=== PATIENT | female | born 1975 | race Caucasian/White ===

== ENCOUNTER 2019-11-13 14:51 | Emergency (ER) | payer MEDICARE, MEDICAID, SELFPAY ==
[2019-11-13 15:05] VITALS: BP 127/73; PULSE 77; RESP 16; TEMP 36.7; O2SAT 99
--- NOTE | 2019-11-13 15:11 | ED.SKABFB ---
HPI - Skin/Abscess/Foreign Bdy General Chief complaint: Skin/Abscess/Foreign Body Stated complaint: Sores in Mouth Time Seen by Provider: 11/13/19 15:12 Source: patient Mode of arrival: ambulatory Limitations: no limitations History of Present Illness HPI narrative: Carla Hernandez is a 44 yo female who has a PMH herpes, who comes with ulcers in mouth. No pain or itching - started a few days ago. Pt is on herpes suppressant therapy Related Data Home Medications Medication Instructions Recorded Confirmed acyclovir 11/13/19 Allergies Allergy/AdvReac Type Severity Reaction Status Date / Time valacyclovir Allergy Unknown Verified 03/07/19 09:04 Penicillins AdvReac Mild NAUSEA Verified 03/07/19 09:04 doxycycline AdvReac Unknown vomiting/na Verified 03/07/19 09:04 usea DIPHENHYDRAMINE HCL Allergy Mild RASH Uncoded 03/07/19 09:04 Review of Systems Review of Systems: Narrative: CONSTITUTIONAL: Denies fever, chills, sweats. EYES: Denies visual changes, redness, discharge. ENT: Denies rhinorrhea, congestion, sore throat, otalgia. Sores in her mouth CARDIOVASCULAR: Denies chest pain, palpitations, edema. RESPIRATORY: Denies dyspnea, wheezing, cough GASTROINTESTINAL: Denies abdominal pain, nausea, vomiting, diarrhea. GENITOURINARY: Denies dysuria, hematuria, abnormal discharge SKIN: Denies rash or itching. MUSCULOSKELETAL: Denies acute back pain, joint pain, or myalgia. NEUROLOGIC: Denies numbness, or focal weakness. PSYCHIATRIC: Denies anxiety or depression. PMFSH Social History Social History (Updated 11/13/19 @ 15:22 by Ellne Wang CNP) Smoking status: Current every day smoker Living arrangements: with family Occupation/Education: occupation Exam Narrative: Exam Narrative: GENERAL: This is a well-nourished, well-developed patient, in mild distress. HEAD: normocephalic, atraumatic. EYES: Sclera clear/white. Vision is grossly intact. EARS: External ears normal,Hearing grossly intact. NOSE: External nose normal with no obvious nasal discharge, nares without redness, no rhinorrhea. THROAT: Mucous membranes moist, posterior pharynx clear. Mout: broken teeth with poor dentition. has white coned non tender, ulcers on upper lip and back of mouth NECK: Neck supple, non-tender without lymphadenopathy, masses or thyromegaly. CARDIOVASCULAR: Regular rate and rhythm without murmurs, gallops, or rubs. RESPIRATORY: Clear to auscultation. Breath sounds equal bilaterally. No wheezes, rales, or rhonchi. GASTROINTESTINAL: Abdomen soft, non-tender, nondistended. Bowel sounds are active. No hepato-splenomegaly, or palpable masses. No guarding. SKIN: warm, intact with no suspicious lesions or rash, good texture and turgor. NEURO: awake, alert, and oriented to person, place and time. There were no obvious focal neurologic abnormalities. Steady gait EXTREMITIES: Normal range of motion. No edema. No calf tenderness. Negative Homans sign bilaterally. BACK: Nontender without deformity or crepitance. No flank tenderness. Course Vital Signs Vital signs: Vital Signs Temperature 98.1 F 11/13/19 15:05 Pulse Rate 77 11/13/19 15:05 Respiratory Rate 16 11/13/19 15:05 Blood Pressure 127/73 11/13/19 15:05 Pulse Oximetry 99 11/13/19 15:05 Temperature 98.1 F 11/13/19 15:05 Pulse Rate 77 11/13/19 15:05 Respiratory Rate 16 11/13/19 15:05 Blood Pressure 127/73 11/13/19 15:05 Pulse Oximetry 99 11/13/19 15:05 MDM - Skin/Abscess/Foreign Bdy Differential Diagnosis Differential diagnosis: Likely urticaria, herpes zoster and other Discharge Plan Discharge Clinical Impression: Aphthous ulcer Patient Disposition: Home, Self-Care Condition: Stable Instructions: Gingivostomatitis (ED) Prescriptions: New Lidocaine Viscous 2 % solution 1 applic MUCOUS MEM TID PRN (Reason: pain) 20 Days Qty: 100 RF: 0 No Action acyclovir 200 mg capsule RF: 0 Follow-up/Referrals: Sharon
== END 2019-11-13 15:42 | disposition home or self-care (01) ==
PROVIDERS: Emergency Provider Nurse Practitioner; PCP Physician Assistant
DX: K12.0 Recurrent oral aphthae (principal); F17.200 Nicotine dependence, unspecified, uncomplicated
CPT/HCPCS: 99213; G0463

== ENCOUNTER 2022-11-25 15:12 | Emergency (ER) | payer MEDICARE, MEDICAID, SELFPAY ==
[2022-11-25 15:22] VITALS: BP 134/86; PULSE 84; RESP 16; TEMP 37.2; O2SAT 99
--- NOTE | 2022-11-25 15:34 | ED.URI ---
HPI - URI/Sore Throat General Chief Complaint: Upper Respiratory Infection Stated Complaint: Sore Throat/Ears Irritation Time Seen by Provider: 11/25/22 15:28 Source: patient Mode of arrival: ambulatory Limitations: no limitations History of Present Illness HPI Narrative: Ms. Ricketts is a 47-year-old female patient presenting to the clinic today with complaints of sore throat, bilateral ear pain, cough, and headache x1 day. She denies any fever or chills. MD elicited complaint: sore throat and nasal congestion Related Data Home Medications Medication Instructions Recorded Confirmed acyclovir 200 mg capsule 200 mg PO BID 11/25/22 11/25/22 atorvastatin 20 mg tablet 20 mg PO DAILY 11/25/22 11/25/22 norethindrone acetate 5 mg tablet 5 mg PO DAILY 11/25/22 11/25/22 paroxetine HCl 30 mg tablet 30 mg PO DAILY 11/25/22 11/25/22 Allergies Allergy/AdvReac Type Severity Reaction Status Date / Time valacyclovir Allergy Unknown Other Verified 11/25/22 15:15 Penicillins AdvReac Mild NAUSEA Verified 11/25/22 15:15 doxycycline AdvReac Unknown vomiting/na Verified 11/25/22 15:15 usea DIPHENHYDRAMINE HCL Allergy Mild RASH Uncoded 11/25/22 15:15 Review of Systems Review of Systems: Pertinent positives per HPI. Patient denies any fever, chills, rash, visual changes, dizziness, shortness of breath, chest pain, palpitations, nausea, vomiting, diarrhea, constipation, abdominal pain, or any urinary issues. PMFSH Social History Social History Smoking status: Current every day smoker Living arrangements: with family Occupation/Education: occupation Comments At the time of my signature, I reviewed and agree with the nursing past medical, surgical, social, and family history. There is no relevant family history pertinent to the patient complaint. Exam Narrative: General: Well-developed, well nourished, in no apparent distress Head: Normocephalic, atraumatic Eyes: Pupils equally round and reactive to light bilaterally, EOM intact, sclera and conjunctive clear, no discharge, lids normal Ears: TMs intact and dull, ear canals clear, no drainage, grossly hearing normal. Nose: Nares patent, clear nasal discharge, no inflammation, no sinus tenderness. Mouth: Oral pharynx without lesions or masses, good dentition, MMM. Oropharynx red Neck: Supple, trachea midline, enlargement of anterior cervical nodes, no thyroid masses or goiter palpable. Cardio: Regular rate and rhythm, s1 and s2 normal, no murmur appreciated. Resp: Clear to auscultation bilaterally, no rhonchi, rales, wheezing or rubs Course Course Emergency Course: Portions of this record may have been created with voice recognition software. Level of Care: Express Care Visit Vital Signs Vital signs: Vital Signs Temperature 37.2 C 11/25/22 15:22 Pulse Rate 84 11/25/22 15:22 Respiratory Rate 16 11/25/22 15:22 Blood Pressure 134/86 11/25/22 15:22 Pulse Oximetry 99 11/25/22 15:22 Oxygen Delivery Room Air 11/25/22 15:22 Temperature 37.2 C 11/25/22 15:22 Pulse Rate 84 11/25/22 15:22 Respiratory Rate 16 11/25/22 15:22 Blood Pressure 134/86 11/25/22 15:22 Pulse Oximetry 99 11/25/22 15:22 Oxygen Delivery Room Air 11/25/22 15:22 Vital signs reviewed MDM - URI/Sore Throat MDM Narrative Medical decision making narrative: At the time of the patient is resting comfortably on the exam table. Strep and COVID test were obtained and were negative in the clinic today. I suspect patient has URI, eustachian tube dysfunction, pharyngitis, and viral syndrome. For prednisone was sent to the pharmacy and supportive measures were discussed with the patient she voiced understanding discharge instructions agrees to treatment plan Differential Diagnosis Differential diagnosis: Likely upper respiratory infection, otitis media, sinusitis, viral infection, bronchitis, influenza, pharyngi
== END 2022-11-25 16:05 | disposition home or self-care (01) ==
PROVIDERS: Emergency Provider Nurse Practitioner Family; PCP Physician Assistant
DX: J06.9 Acute upper respiratory infection, unspecified (principal); B34.9 Viral infection, unspecified; H69.93 Unspecified Eustachian tube disorder, bilateral; J02.9 Acute pharyngitis, unspecified; Z20.822 Contact with and (suspected) exposure to COVID-19; F17.200 Nicotine dependence, unspecified, uncomplicated
CPT/HCPCS: 87081; 87426; 87880; 99213; C9803; G0463

== ENCOUNTER 2022-11-28 15:15 | Emergency (ER) | payer MEDICARE, MEDICAID, SELFPAY ==
--- NOTE | ~2022-11-28 | XR_ITS ---
EXAMINATION: XR chest 2V DATE: 11/28/2022 15:43 INDICATION: Shortness of breath and congestion TECHNIQUE: PA and lateral views of the chest were obtained. COMPARISON: Chest radiograph dated 06/19/2019 FINDINGS: Mild biapical pleural-parenchymal scarring. No other airspace opacities, pulmonary edema, pleural eff usion or pneumothorax. The cardiomediastinal silhouette is normal. Mild thoracic spondylosis. IMPRESSION: 1. Mild biapical pleural-parenchymal scarring. No acute cardiopulmonary disease. Reviewed, dictated and finalized at location A. ECT SAFETY MANAGER IMPRESSION: 1. Mild biapical pleural-parenchymal scarring. No acute cardiopulmonary disease .
--- NOTE | 2022-11-28 15:20 | ED.URI ---
HPI - URI/Sore Throat General Chief Complaint: Upper Respiratory Infection Stated Complaint: Ears/Sore Throat Time Seen by Provider: 11/28/22 15:27 Source: patient, RN notes reviewed and old records reviewed Mode of arrival: ambulatory Limitations: no limitations History of Present Illness HPI Narrative: 47-year-old female presents to the [facility] with continued throat pain, ear pain, rash to her groin area. Reports that she is still taking the prednisone Per medical record was seen and evaluated 3 days ago and at that time stated her symptoms started the night before wear. Today which she reports that her symptoms have been only going on for 3 days, since Friday. Did a teleconference with her primary yesterday and was told that he could not treat her for her symptoms. Related Data Home Medications Medication Instructions Recorded Confirmed acyclovir 200 mg capsule 200 mg PO BID 11/25/22 11/28/22 atorvastatin 20 mg tablet 20 mg PO DAILY 11/25/22 11/28/22 norethindrone acetate 5 mg tablet 5 mg PO DAILY 11/25/22 11/28/22 paroxetine HCl 30 mg tablet 30 mg PO DAILY 11/25/22 11/28/22 Allergies Allergy/AdvReac Type Severity Reaction Status Date / Time valacyclovir Allergy Unknown Other Verified 11/28/22 15:23 Penicillins AdvReac Mild NAUSEA Verified 11/28/22 15:23 doxycycline AdvReac Unknown vomiting/na Verified 11/25/22 15:15 usea DIPHENHYDRAMINE HCL Allergy Mild RASH Uncoded 11/28/22 15:23 Review of Systems Review of Systems: All systems reviewed & are unremarkable except as noted in HPI and below Constitutional: Constitutional: Reports no additional constitutional complaints Eyes: Eyes: Reports no additional eye complaints ENT: Reports as per HPI, Reports otalgia and Reports sore throat Cardiovascular: Cardiovascular: Reports no additional cardiovascular complaints, Denies chest pain and Denies dyspnea Respiratory: Respiratory: Reports no additional respiratory complaints, Denies chest congestion, Denies cough and Denies dyspnea Gastrointestinal: Gastrointestinal: Reports no additional gastrointestinal complaints, Denies abdominal pain, Denies nausea and Denies vomiting Musculoskeletal: Musculoskeletal: Reports no additional musculoskeletal complaints Integumentary/Breasts: Skin/Breast: Reports system reviewed and no additional complaints, except as docu Neurologic: Reports system reviewed and no additional complaints, except as documented Psychiatric: Psychiatric: Reports no additional psychiatric complaints Allergic/Immunologic: Allergic/Immunologic: Reports no additional allergic/immunologic complaints PMFSH Social History Social History Smoking status: Current every day smoker Living arrangements: with family Occupation/Education: occupation Comments At the time of my signature, I reviewed and agree with the nursing past medical, surgical, social, and family history. There is no relevant family history pertinent to the patient complaint. Exam Const: General: cooperative, healthy appearing, no acute distress, well developed, alert, anxious, uncomfortable and well nourished Nutritional Appearance: well nourished Orientation/consciousness: patient oriented x3 Limitations: no limitations HENMT: Head: normal to inspection Ears: hearing grossly normal bilaterally and external ears normal Face/Nose/Sinus: Normal external nose present, Normal nares present, Normal nasal mucous membranes and turbinates present and normal facial exam Face and sinus: normal facial exam Mouth: Yes Normal oral and palatal mucosa present, Yes lip normal and Yes moist mucous membranes Throat: posterior oropharynx normal and uvula midline Eyes: General: appearance normal, both eyes and all related structures Alignment and Position: alignment normal Periorbital: periorbital findings normal Conjunctivae: conjunctivae normal Pupils: Equal, round and reactive pupils pre
[2022-11-28 15:26] VITALS: BP 122/77; PULSE 85; RESP 26; TEMP 36.8; O2SAT 97
[2022-11-28 16:17] VITALS: RESP 20
== END 2022-11-28 16:17 | disposition home or self-care (01) ==
PROVIDERS: Emergency Provider Nurse Practitioner; PCP Physician Assistant
DX: B34.9 Viral infection, unspecified (principal); Z20.822 Contact with and (suspected) exposure to COVID-19; F17.200 Nicotine dependence, unspecified, uncomplicated; E78.00 Pure hypercholesterolemia, unspecified; Z85.21 Personal history of malignant neoplasm of larynx; F41.9 Anxiety disorder, unspecified; F32.A Depression, unspecified
CPT/HCPCS: 71046; 87081; 87426; 87804; 87880; 99213; C9803; G0463

== ENCOUNTER 2022-12-02 06:32 | Emergency (ER) | payer MEDICARE, MEDICAID, SELFPAY ==
--- NOTE | ~2022-12-02 | XR_ITS ---
Clinical Indication: Shortness of breath PA and lateral views of the chest: Comparison: None Findings: Probable pleural thickening or scarring at the right lung apex. The lungs are otherwise michael ar, without evidence of focal consolidation or pleural effusion. Cardiomediastinal silhouette is wit hin normal limits. Bones and soft tissues are unremarkable. Impression: No acute abnormality evident. Probable pleural thickening or scarring at the right lung apex. Reviewed, dictated and finalized at location . RIAL HANDLING SUPERVISOR Impression: No acute abnormality evident. Probable pleural thickening or scarring at the right lung apex.
--- NOTE | 2022-12-02 06:35 | ECG_ITS ---
Measurements Intervals [place] Rate: 82 P: 61 LA: 116 QRS: 49 QRSD: 93 T: 45 QT: 342 QTc: 401 Interpretive Statements SINUS RHYTHM WITH SHORT LA INTERVAL BASELINE ARTIFACT BORDERLINE ECG NO PREVIOUS ECG AVAILABLE FOR COMPARISON Electronically Signed On 12-02-2022 14:12:23 RUBBER CUTTING MACHINE TENDER by Darshan Interiano M.D.
[2022-12-02 06:37] VITALS: O2SAT 99
[2022-12-02 06:44] VITALS: PULSE 85
[2022-12-02 06:45] VITALS: BP 129/75; PULSE 81; RESP 16; O2SAT 99
[2022-12-02 06:47] VITALS: TEMP 36.6
[2022-12-02 06:50] LABS: Basophils Absolute Auto 0.1 K/mm3 (0.0-0.1); Basophils Percent Auto 0.5 % (0.2-1.2); Eosinophils Absolute Auto 0.4 K/mm3 (0-0.3); Eosinophils Percent Auto 1.8 % (0-4.4); Hematocrit 45.9 % (37.0-47.0); Hemoglobin 15.8 g/dL (12.0-15.0); Immature Granulocyte Absolute 0.14 K/mm3 (0.00-0.031); Immature Granulocyte Percent A 0.7 % (0-0.5); Lymphocytes Percent Auto 28.6 % (18.3-44.2); Mean Corpuscular HGB Conc 34.4 g/dl (32-36); Mean Corpuscular Hemoglobin 33.5 pg (26-34); Mean Corpuscular Volume 97.5 fl (80-100); Monocytes Absolute Auto 1.5 K/mm3 (0.1-0.6); Monocytes Percent Auto 7.8 % (2.6-8.5); Neutrophils Absolute Auto 11.9 K/mm3 (1.3-6.7); Neutrophils Percent Auto 60.6 % (45.5-73.1); Platelet Count Result 289 k/mm3 (150-375); Red Blood Count 4.71 M/mm3 (4.2-5.4); White Blood Count 19.6 K/mm3 (4.5-10.0)
[2022-12-02 07:05] LABS: Alanine Aminotransferase 26 U/L (6-35); Albumin Level 4.6 g/dL (3.5-5.1); Alkaline Phosphatase 77 U/L (38-126); Anion Gap 7 mmol/L (8-16); Aspartate Amino Transferase 27 U/L (14-36); Bilirubin,Total 0.7 mg/dL (0.2-1.3); Blood Urea Nitrogen 8 mg/dL (7-17); Calcium 9.2 mg/dL (8.4-10.2); Carbon Dioxide 27 mmol/L (22-30); Chloride 99 mmol/L (98-107); Estimated CRCL calculation 83 ml/min; Estimated Glomerular Filt Rate > 60; Glucose 100 mg/dL (65-110); Potassium 3.3 mmol/L (3.4-5.0); Sodium 133 mmol/L (137-145)
[2022-12-02 07:14] LABS: Strep Group A RT-PCR NOT DETECTED (Negative)
[2022-12-02 07:26] LABS: Influenza A QL RT-PCR Negative (Negative); Influenza B QL RT-PCR Negative (Negative); SARS-CoV-2 RNA PCR Negative
[2022-12-02 07:30] VITALS: BP 128/88; PULSE 82; RESP 14; O2SAT 97
[2022-12-02] MEDS: ONDANSETRON INJ 4 MG/2 ML VIAL IV PUSH (07:33)
[2022-12-02] MEDS: LIDOCAINE HCL 2% VISC SOLN 15 ML UDC PO (07:33)
--- NOTE | 2022-12-02 07:55 | ED.GENADULT ---
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 She states she was seen by a primary care provider for left ear pain and was placed on steroids (last dose she took yesterday). Over the past 2 to 3 days, she has noted cough productive of thick mucus, sore throat, nausea, and 1 episode of vomiting and left ear pain.. Related Data Allergies Allergy/AdvReac Type Severity Reaction Status Date / Time Penicillins AdvReac Nausea and Verified 12/02/22 07:31 Vomiting Review of Systems Review of Systems: CONSTITUTIONAL: Denies fever, chills, or sweats. EYES: Denies visual changes, redness, or discharge. ENT: rhinorrhea, congestion, sore throat, left otalgia. CARDIOVASCULAR: Denies chest pain, palpitations, or edema. RESPIRATORY: Cough productive of thick sputum denies dyspnea. GASTROINTESTINAL: Nausea and vomiting denies abdominal pain, or diarrhea. GENITOURINARY: Denies dysuria or hematuria. SKIN: Denies rash or itching. MUSCULOSKELETAL: Denies back pain, joint pain, or myalgia. NEUROLOGIC: Denies headache, numbness, dizziness, or weakness. PSYCHIATRIC: Denies anxiety or depression. Exam Narrative: GENERAL: Well-developed, well-nourished, and in no acute distress. HEAD: Normocephalic, atraumatic. EYES: PERRLA and EOMI. ENT: Nares clear, no rhinorrhea or epistaxis. Mucous membranes moist. Oropharynx with mild bilateral tonsillar erythema without exudate or other lesions. Left TM pearly gill, bulging slightly without erythema or purulent fluid. Right TM pearly gill nonbulging NECK: Supple. Left anterior cervical adenopathy. No masses. No carotid bruits or JVD CHEST: Clear to auscultation. No respiratory distress. No wheezes rales or rhonchi HEART: Regular rate and rhythm. No murmur heard. Normal peripheral pulses. ABDOMEN: Soft, nontender, nondistended, normal active bowel sounds. EXTREMITIES: Normal range of motion. No edema. SKIN: Warm, dry, no rash. NEURO: No focal deficits. Alert and oriented x3. PSYCH: Normal mood and affect. Course Course Emergency Course: 09:20 - On reevaluation, patient tested negative for strep, COVID and flu. Her blood cell count is elevated to 19, however given the patient's recent use of steroids I do not suspect other acute infection. Chest x-ray not concerning for pneumonia. Patient is able to tolerate food. Will discharge with antiemetics, recommendations for decongestants and pain control. Vital Signs Vital signs: Vital Signs Pulse Oximetry 99 12/02/22 06:37 Oxygen Delivery Room Air 12/02/22 06:37 Temperature 97.8 F 12/02/22 06:47 Pulse Rate 87 12/02/22 08:53 Respiratory Rate 15 12/02/22 08:53 Blood Pressure 131/70 12/02/22 08:53 Pulse Oximetry 96 12/02/22 08:53 Oxygen Delivery Room Air 12/02/22 06:37 Medical Decision Making MDM Narrative Medical decision making narrative: Plan: Labs, pain control, antiemetics, reassess Differential Diagnosis Differential Diagnosis: COVID, flu, strep pharyngitis, viral URI, other Vital Signs Vital Signs: Vital Signs Pulse Oximetry 99 12/02/22 06:37 Oxygen Delivery Room Air 12/02/22 06:37 Temperature 97.8 F 12/02/22 06:47 Pulse Rate 87 12/02/22 08:53 Respiratory Rate 15 12/02/22 08:53 Blood Pressure 131/70 12/02/22 08:53 Pulse Oximetry 96 12/02/22 08:53 Oxygen Delivery Room Air 12/02/22 06:37 Lab Data 12/02/22 06:41 12/02/22 06:41 Labs: Lab Results 12/02/22 12/02/22 12/02/22 Range/Units 06:41 06:41 06:41 WBC 19.6 H (4.5-10.0) K/mm3 RBC 4.71 (4.2-5.4) M/mm3 Hgb 15.8 H (12.0-15.0) g/dL Hct 45.9 (3
[2022-12-02] MEDS: ACETAMINOPHEN 500 MG TABLET 1000 MG PO (08:51)
[2022-12-02 08:53] VITALS: BP 131/70; PULSE 87; RESP 15; O2SAT 96
== END 2022-12-02 09:59 | disposition home or self-care (01) ==
PROVIDERS: Emergency Medicine; Emergency Provider Preventive Medicine Aerospace Medicine
DX: H92.02 Otalgia, left ear (principal); R69 Illness, unspecified; Z20.822 Contact with and (suspected) exposure to COVID-19
CPT/HCPCS: 36415; 71046; 80053; 85025; 87636; 87651; 93005; 96374; 99284; A9270; J2405

== ENCOUNTER 2023-11-20 16:09 | Emergency (ER) | payer MEDICARE, MEDICAID, SELFPAY ==
[2023-11-20 16:24] VITALS: BP 128/57; PULSE 83; RESP 20; TEMP 36.8; O2SAT 98
[2023-11-20 16:27] VITALS: BP 128/57; PULSE 83; RESP 20; TEMP 36.8; O2SAT 98
--- NOTE | 2023-11-20 16:59 | ED.GENADULT ---
HPI - General Adult General Chief complaint: Animal Bite Stated complaint: cat scratch Time Seen by Provider: 11/20/23 16:48 Source: patient and RN notes reviewed Mode of arrival: ambulatory Limitations: no limitations History of Present Illness HPI narrative: Patient presents today complaining of a cat bite to her right 2nd finger that was sustained yesterday my her daughter's cat at home. Currently rates her pain 2/10. She clean the area and applied antibiotic ointment prior to arrival. Related Data Home Medications Medication Instructions Recorded Confirmed acyclovir 200 mg capsule 200 mg PO BID 11/25/22 11/20/23 atorvastatin 20 mg tablet 20 mg PO DAILY 11/25/22 11/20/23 norethindrone acetate 5 mg tablet 5 mg PO DAILY 11/25/22 11/20/23 citalopram 40 mg tablet 40 mg PO DAILY 11/20/23 11/20/23 fluticasone propionate 50 See Rx Instructions .Route .COMPLEX 11/20/23 11/20/23 mcg/actuation nasal spray,suspension naproxen 500 mg tablet 500 mg PO DAILY 11/20/23 11/20/23 Allergies Allergy/AdvReac Type Severity Reaction Status Date / Time doxycycline AdvReac Mild vomiting/na Verified 11/20/23 17:00 usea DIPHENHYDRAMINE HCL Allergy Mild RASH Uncoded 11/20/23 17:00 Review of Systems Review of Systems: CONSTITUTIONAL: Denies body aches, fever, chills, or sweats. EYES: Denies visual changes, redness, or discharge. ENT: Denies rhinorrhea, congestion, sore throat, or otalgia. CARDIOVASCULAR: Denies chest pain, palpitations, or edema. RESPIRATORY: Denies cough or dyspnea. GASTROINTESTINAL: Denies abdominal pain, nausea, vomiting, or diarrhea. GENITOURINARY: Denies dysuria or hematuria. SKIN: + cat scratch to right 2nd finger MUSCULOSKELETAL: Denies back pain, joint pain, or myalgia. NEUROLOGIC: Denies headache, numbness, tingling, or weakness. PSYCH: Denies depression or anxiety. [facility] Social History Social History Smoking status: Current every day smoker Living arrangements: with family Occupation/Education: occupation Comments At time of signature, I have reviewed and agree with nursing past medical, surgical, social and family history unless otherwise noted. Please see nursing chart for further information. There is no relevant family history pertinent to the presenting complaint Exam Narrative: GENERAL: Well-appearing, well-nourished, and in no acute distress. HEAD: Normocephalic, atraumatic. EYES: EOMI. No redness or drainage. Conjunctivae normal. ENT: Mucous membranes pink and moist. NECK: Normal AROM. CHEST: No respiratory distress. EXTREMITIES: 3cm superficial linear scratch to the lateral right 2nd finger at the proximal and middle phalanx. No surrounding erythema or edema. No drainage. Distal sensation intact. Capillary refill normal. Full range of motion. SKIN: Warm, dry, no rash. Capillary refill normal. Normal skin turgor. NEURO: No focal deficits. Alert and oriented x3. Gait steady. PSYCH: Normal affect. No signs of depression or anxiety. Course Course Level of Care: Express Care Visit Vital Signs Vital signs: Vital Signs Temperature 98.2 F 11/20/23 16:24 Pulse Rate 83 11/20/23 16:24 Respiratory Rate 20 11/20/23 16:24 Blood Pressure 128/57 L 11/20/23 16:24 Pulse Oximetry 98 11/20/23 16:24 Oxygen Delivery Room Air 11/20/23 16:24 Temperature 98.2 F 11/20/23 16:27 Pulse Rate 83 11/20/23 16:27 Respiratory Rate 20 11/20/23 16:27 Blood Pressure 128/57 L 11/20/23 16:27 Pulse Oximetry 98 11/20/23 16:27 Oxygen Delivery Room Air 11/20/23 16:27 Reviewed Medical Decision Making MDM Narrative Medical decision making narrative: At this time the scratch does not seem to be infected, but patient will be started on prophylactic antibiotics due to increased risk of infection. Prescription for cefuroxime will be sent to pharmacy. Anticipatory guidance given. Tetanus s
[2023-11-20] MEDS: TETANUS,DIPHTHERIA,AC PERTUSSIS ADULT (0.5 ML) BOOSTRIX IM (17:09)
== END 2023-11-20 17:22 | disposition home or self-care (01) ==
PROVIDERS: Emergency Provider Nurse Practitioner
DX: S60.411A Abrasion of left index finger, initial encounter (principal); W55.01XA Bitten by cat, initial encounter; Z23 Encounter for immunization; F17.200 Nicotine dependence, unspecified, uncomplicated; E78.00 Pure hypercholesterolemia, unspecified; Z85.21 Personal history of malignant neoplasm of larynx; Z92.3 Personal history of irradiation; F41.9 Anxiety disorder, unspecified; F32.A Depression, unspecified
CPT/HCPCS: 90471; 90715; 99213; G0463